=== PATIENT | male | born 1970 | race Caucasian/White ===

== ENCOUNTER 2017-10-17 17:54 | Emergency (ER) | payer MEDICAID ==
--- NOTE | 2017-10-17 18:11 | Emergency Department Record ---
History of Present Illness - General Chief complaint: Male Urogenital Problem Stated complaint: URINARY PROBLEMS Time Seen by Provider: 10/17/17 18:02 Source: Patient Mode of Arrival: Ambulatory Limitations: No limitations - History of Present Illness Initial comments: The patient is here due to mild dysuria and urinary urgency for 3 days. He denies any AP, nausea, back pain, fever, vomiting, or hematuria. The patient denies any hx of similar issues and also denies any hx of kidney or bladder issues. He does state his significant other was here in the ER 3 days ago and may have had an infection. MD Complaint: Dysuria Onset/Timin -: Days(s) Radiation: None Reports: Denies other symptoms - Related Data Sexually active: No Previous Rx's Medication Instructions Recorded Metronidazole [Flagyl] 500 mg PO BID #14 tablet 10/17/17 Allergies Allergy/AdvReac Type Severity Reaction Status Date / Time chocolate flavor Allergy ANAPHYLAXIS Verified 10/17/17 18:04 Travel Screening - Travel/Exposure Within Last 30 Days Have you traveled within the last 30 days?: Yes Location Detail:: [place] - Travel/Exposure Within Last Year Have you traveled outside the [place] in the last year?: No - Additonal Travel Details Have you been exposed to anyone with a communicable illness?: No - Travel Symptoms Symptom Screening: None Review of Systems Constitutional: Denies: Chills, Fever Eyes: Denies: Eye discharge ENT: Denies: Congestion Respiratory: Denies: Cough, Dyspnea Past Medical History - SOCIAL HISTORY Smoking Status: Current every day smoker Alcohol Use: None Drug Use: None - RESPIRATORY Hx Respiratory Disorders: Yes Hx Asthma: Yes Hx COPD: Yes - CARDIOVASCULAR Hx Cardio Disorders: No - NEURO Hx Neuro Disorders: No - GI Hx GI Disorders: No - Hx Genitourinary Disorders: No - ENDOCRINE Hx Endocrine Disorders: Yes Hx Diabetes: Yes (borderline) - MUSCULOSKELETAL Hx Musculoskeletal Disorders: Yes Hx Arthritis: Yes Comment:: tick/twitch to right eye - PSYCH Hx Psych Problems: No - HEMATOLOGY/ONCOLOGY Hx Hematology/Oncology Disorders: No Family Medical History Any Significant Family History?: No Physical Exam - General General Appearance: Alert, Oriented x3, Cooperative, No acute distress - Head Head exam: Atraumatic, Normocephalic, Normal inspection - Eye Eye exam: Normal appearance, PERRL - ENT Throat exam: Normal inspection. negative: Tonsillar erythema, Tonsillar exudate - Neck Neck exam: Normal inspection, Full ROM. negative: Tenderness - Respiratory Respiratory exam: Normal lung sounds bilaterally. negative: Respiratory distress - Cardiovascular Cardiovascular Exam: Regular rate, Normal rhythm, Normal heart sounds - GI/Abdominal GI/Abdominal exam: Soft, Normal bowel sounds, Other (Neg CVAT.). negative: Tenderness Course Vital Signs 10/17/17 17:57 Temperature 98.2 F Pulse Rate 76 Respiratory 16 Rate Blood Pressure 125/88 Pulse Ox 99 - Reevaluation(s) Reevaluation #1: The patient is doing well. I did explain that we will be treating him for Trichomonas which is the same infection as his fiancee. We will test for GC and Chlamydia and will treat if positive but since her testing was neg most likely his will be also. 10/17/17 18:41 Medical Decision Making - Lab Data Result diagrams: 10/17/17 18:10 10/17/17 18:10 Disposition Disposition: Discharge Clinical Impression: Trichomonal urethritis in male Disposition: Home, Self-Care Condition: (2) Stable Instructions: Trichomoniasis (ED) Additional Instructions: Please take the Flagyl as directed and do not drink alcohol. Please see your PCP next week for recheck of the urine. Please practice safe sex and return to the ER for any problems. Prescriptions: Metronidazole [Flagyl] 500 mg PO BID #14 tablet Forms: Patient Portal Access Time of Disposition: 18:45 Quality - Quality Measures Quality Measures: N/A - Blood Pressure Screening View Details: Yes Does Patient Have Any of the Following: No Blood Pressure Classification: Pre-Hypertensive BP Reading Systolic Measurement: 125 Diastolic Measurement: 88 Screening for High Blood Pressure: < Pre-Hypertensive BP, F/U Documented > [ G8950] Pre-Hypertensive Follow-up Interventions: Referral to alternative/primary care provider.
[2017-10-17 18:20] LABS: BASO % 0.6 % (0-6); EOS % 4.8 % (0-6); GRAN % 51.4 % (47-80); HEMATOCRIT 42.5 % (42.0-52.0); HEMOGLOBIN 14.6 gm/dl (14.0-18.0); LYMPH % 35.6 % (16-45); MEAN CELL VOLUME 88.7 fl (81-97); MEAN CORPUSCULAR HEMOGLOBIN 30.5 pg (27-33); MEAN CORPUSCULAR HGB CONC 34.4 g/dl (32-36); MEAN PLATELET VOLUME 9.4 fl (7.4-10.4); MONO % 7.6 % (0-9); PLATELET COUNT 310 K/uL (130-400); RED BLOOD COUNT 4.79 M/uL (4.40-5.70); RED CELL DISTRIBUTION WIDTH 12.5 % (11.5-14.5); WHITE BLOOD COUNT W/O DIFF 7.9 K/uL (4.2-12.2)
[2017-10-17 18:24] LABS: URINE APPEARANCE CLEAR; URINE BILIRUBIN NEGATIVE (NEGATIVE); URINE BLOOD NEGATIVE (NEGATIVE); URINE COLOR YELLOW; URINE GLUCOSE (UA) NEGATIVE (NEGATIVE); URINE KETONE NEGATIVE (NEGATIVE); URINE LEUKOCYTE ESTERASE SMALL (NEGATIVE); URINE NITRITE NEGATIVE (NEGATIVE); URINE PROTEIN NEGATIVE (NEGATIVE)
[2017-10-17] MEDS ORDERED: METRONIDAZOLE 250 MG TABLET PO ONE (18:26)
[2017-10-17 18:29] LABS: BLOOD UREA NITROGEN 7 mg/dL (6-20); CREATININE 0.8 mg/dL (0.7-1.2); EST GLOMERULAR FILTRATION RATE > 60 mL/min
[2017-10-17 18:31] LABS: URINE EPITHELIAL CELLS NONE SEEN (FEW); URINE RBC NONE SEEN (NONE SEEN)
[2017-10-17 18:32] LABS: GLUCOSE,RANDOM 119 mg/dL (74-109)
== END 2017-10-17 19:20 | disposition home or self-care (01) ==
LOC: ER 17:54
DX: A59.03 Trichomonal cystitis and urethritis (principal)
CPT/HCPCS: 80048; 81001; 85025; 99283

== ENCOUNTER 2017-10-26 19:08 | Emergency (ER) | payer MEDICAID ==
--- NOTE | 2017-10-26 19:26 | Emergency Department Record ---
History of Present Illness - General Chief complaint: Male Urogenital Problem Stated complaint: RECHECK STD Time Seen by Provider: 10/26/17 19:11 Source: Patient Mode of Arrival: Ambulatory Limitations: No limitations - History of Present Illness Initial comments: 47 yo male presents to ED for re-evaluation of recent treatment for trichonmonas. Patient reports that he was prescribed Flagyl and completed his course of antibiotics 2 days ago, wants to make sure his infection has resolved. Patient denies dysuria symptoms, fevers, chills, or abdominal pain symptoms. Patient denies health problems other than COPD. MD Complaint: Other Onset/Timin -: Days(s) Radiation: None Improves with: None Worsens with: None - Related Data Sexually active: Yes Home Medications Medication Instructions Recorded Confirmed Last Taken No Home Med [NO HOME MEDS] 10/26/17 10/26/17 Unknown Allergies Allergy/AdvReac Type Severity Reaction Status Date / Time chocolate flavor Allergy ANAPHYLAXIS Verified 10/17/17 18:04 Travel Screening - Travel/Exposure Within Last 30 Days Have you traveled within the last 30 days?: No - Travel Symptoms Symptom Screening: None Review of Systems Constitutional: Denies: Chills, Fever, Malaise, Night sweats Eyes: Denies: Eye discharge, Eye pain ENT: Denies: Congestion, Ear pain, Epistaxis Respiratory: Denies: Cough, Dyspnea Cardiovascular: Denies: Chest pain, Dyspnea on exertion Endocrine: Denies: Fatigue, Heat or cold intolerance Gastrointestinal: Denies: Abdominal pain, Nausea, Vomiting Genitourinary: Denies: Hematuria, Incontinence, Retention, Testicular pain, Testicular mass Musculoskeletal: Denies: Arthralgia, Back pain Skin: Denies: Bruising, Change in color Neurological: Denies: Abnormal gait, Confusion, Headache, Seizure Psychiatric: Denies: Anxiety Hematological/Lymphatic: Denies: Anemia, Blood Clots Past Medical History - SOCIAL HISTORY Smoking Status: Current every day smoker - RESPIRATORY Hx Respiratory Disorders: Yes Hx Asthma: Yes Hx COPD: Yes - CARDIOVASCULAR Hx Cardio Disorders: No - NEURO Hx Neuro Disorders: No - GI Hx GI Disorders: No - Hx Genitourinary Disorders: No - ENDOCRINE Hx Endocrine Disorders: Yes Hx Diabetes: Yes (borderline) - MUSCULOSKELETAL Hx Musculoskeletal Disorders: Yes Hx Arthritis: Yes Comment:: tick/twitch to right eye - PSYCH Hx Psych Problems: No - HEMATOLOGY/ONCOLOGY Hx Hematology/Oncology Disorders: No Family Medical History Any Significant Family History?: Yes Hx Heart Disease: Father, Brother/Sister, Grandparents Hx HTN: Grandparents Hx Resp Disorders: Grandparents Hx Stroke: Father Physical Exam - General General Appearance: Alert, Oriented x3, Cooperative, No acute distress Limitations: No limitations - Head Head exam: Atraumatic, Normocephalic, Normal inspection Head exam detail: negative: Abrasion, Contusion, Santiago's sign, General tenderness, Hematoma, Laceration - Eye Eye exam: Normal appearance. negative: Conjunctival injection, Periorbital swelling, Periorbital tenderness, Scleral icterus - ENT Ear exam: negative: Auricular hematoma, Auricular trauma Nasal Exam: negative: Active bleeding, Discharge, Dried blood, Foreign body Mouth exam: negative: Drooling, Laceration, Muffled voice, Tongue elevation - Neck Neck exam: Normal inspection. negative: Meningismus, Tenderness - Respiratory Respiratory exam: Decreased breath sounds. negative: Rales, Respiratory distress, Rhonchi, Stridor - Cardiovascular Cardiovascular Exam: Regular rate, Normal rhythm, Normal heart sounds - GI/Abdominal GI/Abdominal exam: Soft. negative: Rebound, Rigid, Tenderness - Rectal Rectal exam: Deferred - exam: Deferred - Extremities Extremities exam: Normal inspection. negative: Pedal edema, Tenderness - Back Back exam: Denies: CVA tenderness (R), CVA tenderness (L) - Neurological Neurological exam: Alert, Normal gait, Oriented X3 - Psychiatric Psychiatric exam: Normal affect, Normal mood - Skin Skin exam: Normal color. negative: Abrasion Type of lesion: negative: abrasion Course Vital Signs 10/26/17 19:14 Temperature 97.9 F Pulse Rate 59 L Respiratory 18 Rate Blood Pressure 135/72 Pulse Ox 98 - Reevaluation(s) Reevaluation #1: 10/26/17 19:57 UA appears negative for infection, and the patient appears stable for discharge at this time. Disposition Disposition: Discharge Clinical Impression: STD (sexually transmitted disease) Disposition: Home, Self-Care Condition: (2) Stable Instructions: Sexually Transmitted Diseases (ED) Additional Instructions: Return to ED if your symptoms worsen or if you have any concerns. Follow-up with your family doctor in 3-5 days as directed. Forms: Patient Portal Access Time of Disposition: 19:57 Quality - Quality Measures Quality Measures: N/A - Blood Pressure Screening Does Patient Have Any of the Following: No Blood Pressure Classification: Normal BP Reading Systolic Measurement: 106 Diastolic Measurement: 69 Screening for High Blood Pressure: < Normal BP, F/U Not Required > [G8783]
[2017-10-26 19:41] LABS: URINE APPEARANCE CLEAR; URINE BILIRUBIN NEGATIVE (NEGATIVE); URINE BLOOD NEGATIVE (NEGATIVE); URINE COLOR YELLOW; URINE GLUCOSE (UA) NEGATIVE (NEGATIVE); URINE KETONE NEGATIVE (NEGATIVE); URINE LEUKOCYTE ESTERASE TRACE (NEGATIVE); URINE NITRITE NEGATIVE (NEGATIVE); URINE PROTEIN NEGATIVE (NEGATIVE); URINE UROBILINOGEN 0.2 E.U./dL (0.20 - 1.00)
[2017-10-26 19:53] LABS: URINE RBC 0 - 2 (NONE SEEN); URINE WBC 0 - 2 (0-2/hpf)
== END 2017-10-26 20:09 | disposition home or self-care (01) ==
LOC: ER 19:08
DX: A64 Unspecified sexually transmitted disease (principal)
CPT/HCPCS: 81001; 99283

== ENCOUNTER 2018-07-22 07:41 | Emergency (ER) | payer SELFPAY ==
--- NOTE | 2018-07-22 08:12 | Emergency Department Record ---
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 No fall or direct injury. Pain is mid lower neck posterior and is worse with motion into rotation "right or left" and flexion and extension. No pain into arms, no numbness, n oweakness. Continues to work without limitations. Pt did not report initially at time of injury, no prior medical evaluation or treatments. Taking an OTC "pain reliever 500mg 2 or 3 at a time" for pains in knees and neck. "Good relief" with meds. 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 This issue was present before his current injury. MD Complaint: Neck injury, Neck pain Onset/Timin -: Month(s) Place: Work, Other Severity: Moderate Severity scale (1-10): 8 Quality: Sharp Consistency: Intermittent Improves With: Immobilization, Remaining still Worsens With: Movement of neck Context: Lifting Associated Symptoms: Other Treatments Prior to Arrival: Acetaminophen - Related Data Previous Rx's Medication Instructions Recorded Ibuprofen [Motrin 600Mg] 600 mg PO Q6H 10 Days #40 tablet 07/22/18 Allergies Allergy/AdvReac Type Severity Reaction Status Date / Time chocolate flavor Allergy ANAPHYLAXIS Verified 07/22/18 07:49 Travel Screening - Travel/Exposure Within Last 30 Days Have you traveled within the last 30 days?: No - Travel/Exposure Within Last Year Have you traveled outside the [place] in the last year?: No - Additonal Travel Details Have you been exposed to anyone with a communicable illness?: No - Travel Symptoms Symptom Screening: None Review of Systems Constitutional: Denies: Chills, Fever Eyes: Denies: Photophobia, Vision change ENT: Denies: Congestion Respiratory: Denies: Cough, Dyspnea Cardiovascular: Denies: Arrhythmia, Chest pain Endocrine: Denies: Fatigue Gastrointestinal: Denies: Abdominal pain, Nausea, Vomiting Musculoskeletal: Reports: As per HPI Skin: Denies: Bruising, Rash Neurological: Denies: Abnormal gait, Headache, Weakness Psychiatric: Denies: Anxiety Hematological/Lymphatic: Denies: Anemia Past Medical History - SOCIAL HISTORY Smoking Status: Current every day smoker Alcohol Use: Occasional Drug Use: None - RESPIRATORY Hx Respiratory Disorders: Yes Hx Asthma: Yes Hx COPD: Yes - CARDIOVASCULAR Hx Cardio Disorders: No - NEURO Hx Neuro Disorders: No - GI Hx GI Disorders: No - Hx Genitourinary Disorders: No - ENDOCRINE Hx Endocrine Disorders: Yes Hx Diabetes: Yes (borderline) - MUSCULOSKELETAL Hx Musculoskeletal Disorders: Yes Hx Arthritis: Yes Comment:: tick/twitch to right eye - PSYCH Hx Psych Problems: No - HEMATOLOGY/ONCOLOGY Hx Hematology/Oncology Disorders: No Family Medical History Any Significant Family History?: Yes Hx Heart Disease: Father, Brother/Sister, Grandparents Hx HTN: Grandparents Hx Resp Disorders: Grandparents Hx Stroke: Father Physical Exam - General General Appearance: Alert, Oriented x3, Cooperative, No acute distress Limitations: No limitations - Head Head exam: Atraumatic, Normal inspection - Eye Eye exam: Normal appearance, PERRL, EOMI - ENT ENT exam: Normal exam, Mucous membranes moist, Normal external ear exam, Normal orophraynx - Neck Neck exam: Full ROM, Tenderness (tender at C5-6 midline, no swelling, no muscle tension or spasm in cervical spine). negative: Lymphadenopathy, Meningismus - Respiratory Respiratory exam: Normal lung sounds bilaterally. negative: Rhonchi, Wheezes - Cardiovascular Cardiovascular Exam: Regular rate, Normal rhythm, Normal heart sounds Peripheral Pulses: 2+: Radial (R), Radial (L) - GI/Abdominal GI/Abdominal exam: Soft, Normal bowel sounds. negative: Tenderness - Extremities Extremities exam: Normal inspection, Full ROM. negative: Calf tenderness, Joint swelling - Back Back exam: Reports: Normal inspection. Denies: Paraspinal tenderness, Tenderness (to the Thoracic, Lumbar, sacral) - Neurological Neurological exam: Alert, Altered, Normal gait, Oriented X3 - Psychiatric Psychiatric exam: Normal affect - Skin Skin exam: Normal color. negative: Rash Course Vital Signs 07/22/18 07:50 Temperature 97.7 F Pulse Rate 51 L Respiratory 16 Rate Blood Pressure 132/93 Pulse Ox 100 Disposition Disposition: Discharge Clinical Impression: Neck pain, acute, Cervical muscle strain Disposition: Home, Self-Care Condition: (1) Good Instructions: Cervical Sprain (ED) Additional Instructions: Follow up with your primary physician in one week. Return as needed. If weakness or pain to arms return to ED immediately. Prescriptions: Ibuprofen [Motrin 600Mg] 600 mg PO Q6H 10 Days #40 tablet Forms: Patient Portal Access Quality - Quality Measures Quality Measures: N/A - Blood Pressure Screening Does Patient Have Any of the Following: No Blood Pressure Classification: Hypertensive Reading Systolic Measurement: 132 Diastolic Measurement: 93 Screening for High Blood Pressure: < Normal BP, F/U Not Required > [G8783]
--- NOTE | 2018-07-24 08:49 | RADIOLOGY REPORT ---
EXAM: COMPLETE CERVICAL SPINE HISTORY: INCREASING NECK PAIN WITH TINGLING BILATERALLY IN THE HANDS, HAD A LIFTING STRAIN ONE MONTH AGO. TECHNIQUE: Six views of the cervical spine were obtained. Comparison: None. Encounter: Initial. FINDINGS: There is slight anterior compression of the superior end plate of the body of C4 which is likely chronic with some associated spurring. Old films would be useful to confirm. Some degenerative change at the odontoid- anterior arch of C1 articulation. The cervical intervertebral disk spaces are maintained. No prevertebral soft tissue swelling is evident. Elsewhere the cervical spine appears negative. No definite acute fracture is seen. No destructive lesion is seen. IMPRESSION: 1. MILD COMPRESSION OF THE ANTERIOR ASPECT OF THE BODY OF C4 IS LIKELY CHRONIC. OLD FILMS WOULD BE USEFUL TO CONFIRM. 2. DEGENERATIVE CHANGE AT THE ODONTOID-ANTERIOR ARCH OF C1 ARTICULATION. JOB NUMBER: [id number] MTDD
== END 2018-07-22 08:44 | disposition home or self-care (01) ==
LOC: ER 07:41
DX: S16.1XXA Strain of muscle, fascia and tendon at neck level, initial encounter (principal); X50.0XXA Overexertion from strenuous movement or load, initial encounter; Y99.0 Civilian activity done for income or pay; J44.9 Chronic obstructive pulmonary disease, unspecified; F17.210 Nicotine dependence, cigarettes, uncomplicated
CPT/HCPCS: 72050; 99283

== ENCOUNTER 2019-03-19 18:21 | Emergency (ER) | payer SELFPAY ==
[2019-03-19] MEDS ORDERED: METHYLPREDNISOLONE PF 125MG/VIAL IVP ONE (18:30)
[2019-03-19] MEDS ORDERED: IPRATROPIUM/ALBUTEROL (0.5MG/3MG) NEB INH ONE (18:30)
--- NOTE | 2019-03-19 18:36 | Emergency Department Record ---
History of Present Illness - General Chief Complaint: Cough Stated Complaint: SOB Source: Patient Mode of Arrival: Ambulatory Limitations: No limitations - History of Present Illness Initial Comments: 48 yo male with COPD present with about 4-5 months of increasing cough, congestion and shortness of breath. The last one to two week he has had sinus pressure, discolored drainage and cough with productive sputum. He uses his inhalers without improvement. He does not have a doctor. He does continue to smoke. He states he is trying to quit. MD Complaint: Cough, Shortness of breath -: Month(s) (5) Radiation: Other Severity: Moderate Quality: Other Consistency: Constant Improves With: Nothing Worsens With: Coughing Known History Of: COPD Context: Recent URI (Sinus drainage, productive sputum) Associated Symptoms: Cough Treatments Prior to Arrival: Bronchodilator - Related Data Previous Rx's Medication Instructions Recorded Azithromycin 250 mg PO DAILY #4 tablet 03/19/19 Budesonide/Formoterol Fumarate 10.2 gm IH BID #1 [email or web address] 03/19/19 [Symbicort 160-4.5 Mcg Inhaler] Prednisone [Prednisone 20Mg] 20 mg PO BID #10 tab 03/19/19 Allergies Allergy/AdvReac Type Severity Reaction Status Date / Time chocolate flavor Allergy ANAPHYLAXIS Verified 03/19/19 18:29 Review of Systems Constitutional: Denies: Chills, Fever, Malaise, Weakness Eyes: Denies: Eye discharge, Eye pain, Photophobia, Vision change ENT: Reports: Congestion. Denies: Dental pain, Ear pain, Epistaxis, Throat pain Respiratory: Reports: Cough, Dyspnea, Wheezes. Denies: Hemoptysis, Stridor Cardiovascular: Reports: Dyspnea on exertion, Syncope (He past out a month ago at work). Denies: Chest pain, Edema, Palpitations Endocrine: Denies: Fatigue Gastrointestinal: Denies: Abdominal pain, Diarrhea, Nausea, Vomiting Genitourinary: Denies: Dysuria, Frequency, Hematuria Musculoskeletal: Denies: Arthralgia, Back pain, Joint swelling, Myalgia Skin: Denies: Bruising, Change in color, Rash Neurological: Denies: Confusion, Headache Psychiatric: Denies: Anxiety Hematological/Lymphatic: Denies: Blood Clots, Easy bleeding, Easy bruising, Swollen glands Past Medical History - SOCIAL HISTORY Smoking Status: Current every day smoker Drug Use: None - RESPIRATORY Hx Respiratory Disorders: Yes Hx Asthma: Yes Hx COPD: Yes - CARDIOVASCULAR Hx Cardio Disorders: No - NEURO Hx Neuro Disorders: No - GI Hx GI Disorders: No - Hx Genitourinary Disorders: No - ENDOCRINE Hx Endocrine Disorders: Yes Hx Diabetes: Yes (borderline) - MUSCULOSKELETAL Hx Musculoskeletal Disorders: Yes Hx Arthritis: Yes Comment:: tick/twitch to right eye - PSYCH Hx Psych Problems: No - HEMATOLOGY/ONCOLOGY Hx Hematology/Oncology Disorders: No Family Medical History Hx Heart Disease: Father, Brother/Sister, Grandparents Hx HTN: Grandparents Hx Resp Disorders: Grandparents Hx Stroke: Father Physical Exam - General General Appearance: Alert, Oriented x3, Cooperative, No acute distress Limitations: No limitations - Head Head exam: Atraumatic, Normal inspection - Eye Eye exam: Normal appearance, PERRL. negative: Conjunctival injection, Scleral icterus - ENT ENT exam: Normal exam, Mucous membranes moist, Normal orophraynx Ear exam: Normal external inspection Nasal Exam: Normal inspection Mouth exam: Normal external inspection Teeth exam: Normal inspection Throat exam: Normal inspection - Neck Neck exam: Normal inspection. negative: Lymphadenopathy - Respiratory Respiratory exam: Prolonged expiratory, Wheezes. negative: Normal lung sounds bilaterally, Accessory muscle use, Decreased breath sounds, Respiratory distress , Rhonchi, Stridor - Cardiovascular Cardiovascular Exam: Regular rate, Normal rhythm, Normal heart sounds. negative : Diastolic murmur, Systolic murmur Peripheral Pulses: 2+: Radial (R), Radial (L) - GI/Abdominal GI/Abdominal exam: Soft. negative: Tenderness - Rectal Rectal exam: Deferred - exam: Deferred - Extremities Extremities exam: Normal inspection. negative: Calf tenderness, Pedal edema, Tenderness - Back Back exam: Denies: CVA tenderness (R), CVA tenderness (L) - Neurological Neurological exam: Alert, Oriented X3 - Psychiatric Psychiatric exam: Normal affect, Normal mood - Skin Skin exam: Dry, Intact, Normal color, Warm Course - Reevaluation(s) Reevaluation #1: EKG #1: 18:38 Rate: 57 Rhythm: sinus [place]: normal Intervals: QRS 126 ST segments: no acute abnormalities Prior: 07/04/15 no changes 03/19/19 18:44 03/19/19 19:11 The labs results were reviewed There are no acute significant abnormalities of the CBC There are no acute significant abnormalities of the CMP 03/19/19 19:12 CXR reviewed Hyperinflation otherwise no acute process. COPD The patient will be treated for COPD, sinusitis, and given a referral for a new PCP 03/19/19 19:45 Medical Decision Making - Lab Data Result diagrams: 03/19/19 18:35 03/19/19 18:35 Disposition Disposition: Discharge Clinical Impression: COPD (chronic obstructive pulmonary disease), Sinusitis Disposition: Home, Self-Care Condition: (1) Good Instructions: Sinusitis (ED), COPD (Chronic Obstructive Pulmonary Disease) (ED) Additional Instructions: Call the family practice clinic for the next available follow up appointment Return to the ER for a recheck if worse, any new concerns or questions Take the prescriptions provided as directed Review this ER visit and the tests performed with your family doctor You have a small nodule in the lung. Your new doctor will need to recheck this to make sure it does not enlarge. Prescriptions: Azithromycin 250 mg PO DAILY #4 tablet Budesonide/Formoterol Fumarate [Symbicort 160-4.5 Mcg Inhaler] 10.2 gm IH BID # 1 hfa.aer.ad Prednisone [Prednisone 20Mg] 20 mg PO BID #10 tab Referrals: AL SALDIVAR M.D. [MEDICAL DOCTOR] - Forms: Patient Portal Access Time of Disposition: 19:13 Quality - Quality Measures Quality Measures: N/A - Blood Pressure Screening Does Patient Have Any of the Following: No Blood Pressure Classification: Pre-Hypertensive BP Reading Systolic Measurement: 112 Diastolic Measurement: 84 Screening for High Blood Pressure: < Pre-Hypertensive BP, F/U Documented > [ G8950] Pre-Hypertensive Follow-up Interventions: Referral to alternative/primary care provider.
[2019-03-19 18:44] LABS: BASO % 0.6 % (0-6); EOS % 3.6 % (0-6); GRAN % 54.2 % (47-80); HEMATOCRIT 43.4 % (42.0-52.0); HEMOGLOBIN 14.8 gm/dl (14.0-18.0); LYMPH % 33.8 % (16-45); MEAN CELL VOLUME 87.5 fl (81-97); MEAN CORPUSCULAR HEMOGLOBIN 29.8 pg (27-33); MEAN CORPUSCULAR HGB CONC 34.1 g/dl (32-36); MEAN PLATELET VOLUME 9.3 fl (7.4-10.4); MONO % 7.8 % (0-9); PLATELET COUNT 382 K/uL (130-400); RED BLOOD COUNT 4.96 M/uL (4.40-5.70); RED CELL DISTRIBUTION WIDTH 12.9 % (11.5-14.5); WHITE BLOOD COUNT W/O DIFF 7.9 K/uL (4.2-12.2)
[2019-03-19] MEDS ORDERED: AZITHROMYCIN 500 MG TABLET PO ONE (18:45)
[2019-03-19 18:57] LABS: BLOOD UREA NITROGEN 8 mg/dL (6-20); CREATININE 0.8 mg/dL (0.7-1.2); EST GLOMERULAR FILTRATION RATE > 60 mL/min; TOTAL PROTEIN 7.4 g/dL (6.6-8.7)
[2019-03-19 18:59] LABS: GLUCOSE,RANDOM 93 mg/dL (74-109)
[2019-03-19 19:02] LABS: ALB/GLOB RATIO 1.6 (1.1-1.8); ALBUMIN 4.5 g/dL (4.0-5.0); ALKALINE PHOSPHATASE 105 U/L (40-129); ALT/SGPT 16 U/L (<41); AST/SGOT 19 U/L (10.0-50.0)
--- NOTE | 2019-03-22 11:15 | RADIOLOGY REPORT ---
DATE: 03/19/2019 at 1909. EXAM: CHEST, TWO VIEWS. HISTORY: COUGH FOR SEVERAL MONTHS. CHRONIC OBSTRUCTIVE PULMONARY DISEASE. TECHNIQUE: Upright PA and lateral views of the chest. COMPARISON: Two-view chest radiographic examination dated 07/04/2015. FINDINGS: The heart is not enlarged and the pulmonary vasculature is nondilated. The lungs are hyperinflated. No lung consolidation, costophrenic angle blunting, or pneumothorax. Tiny pleural-based nodular opacities are noted in each apex, not significantly changed, consistent with scarring. No acute osseous abnormality. IMPRESSION: 1. HYPERINFLATION OF THE LUNGS CONSISTENT WITH CHRONIC OBSTRUCTIVE PULMONARY DISEASE. 2. NO EVIDENCE OF ACUTE CARDIOPULMONARY DISEASE. BI-APICAL PLEURAL AND PARENCHYMAL SCARRING IS REDEMONSTRATED. 3. NOT MENTIONED ABOVE IS A 3.0 TO 4.0 MM NODULAR OPACITY PROJECTING AT THE LEVEL OF THE LATERAL LEFT HEMITHORAX BASE. THIS IS LIKELY A NIPPLE SHADOW. THERE IS AN EQUIVOCAL NODULAR OPACITY MEASURING 6.0 TO 7.0 MM AT THE MID TO UPPER LEFT HEMITHORAX ON THE FRONTAL VIEW ONLY. THESE ARE NOT VISUALIZED ON THE PRIOR EXAMINATION. SHORT-TERM FOLLOW UP RADIOGRAPHIC EXAMINATION INCLUDING UPRIGHT PA, LATERAL, AND SHELL OBLIQUE VIEWS WITH NIPPLE MARKERS IN PLACE IS RECOMMENDED. Job Number: [id number] MTDD
== END 2019-03-19 20:04 | disposition home or self-care (01) ==
LOC: ER 18:21
DX: J44.9 Chronic obstructive pulmonary disease, unspecified (principal); J01.90 Acute sinusitis, unspecified; R06.02 Shortness of breath; F17.210 Nicotine dependence, cigarettes, uncomplicated
CPT/HCPCS: 71046; 80053; 85025; 93005; 93010; 94640; 96374; 99284; J2930

== ENCOUNTER 2020-01-21 18:15 | Emergency (ER) | payer MEDICAID ==
--- NOTE | 2020-01-21 18:59 | Emergency Department Record ---
History of Present Illness - General Chief complaint: ENT Stated complaint: PAIN IN LT EAR Time Seen by Provider: 01/21/20 18:53 Source: Patient Mode of Arrival: Ambulatory Limitations: No limitations - History of Present Illness Initial comments: 49 yo male presents with left ear discomfort. The onset was a few days ago. He states it is a fairly constant dull ache. No drainage. No fevers. The hearing on the left is a little muffled. He has a very mild sore throat as well. No fevers. No runny nose. He has a chronic cough from COPD that is unchanged. NO swollen glands. No dizziness or vertigo. MD complaint: Ear pain Onset/Timin -: Days(s) Location: L ear Severity: Mild Severity scale (1-10): 5 Quality: Aching Consistency: Constant Improves with: None Worsens with: None Associated Symptoms: Cough, Sore throat - Related Data Previous Rx's Medication Instructions Recorded Amoxicillin 500 mg PO TID #21 capsule 01/21/20 Carbamide Peroxide [Ear Drops] 15 ml OT BID #30 drops 01/21/20 Allergies Allergy/AdvReac Type Severity Reaction Status Date / Time chocolate flavor Allergy ANAPHYLAXIS Verified 01/21/20 18:53 Travel/Exposure Screening - Travel/Exposure Within Last 30 Days Have you traveled within the last 30 days?: No - Additonal Travel/Exposure Details Have you been exposed to anyone with a communicable illness?: No Review of Systems Constitutional: Denies: Chills, Fever, Malaise, Weakness Eyes: Denies: Eye discharge, Eye pain, Photophobia, Vision change ENT: Reports: As per HPI, Congestion, Ear pain, Hearing loss, Throat pain. Denies: Dental pain, Epistaxis Respiratory: Reports: Cough. Denies: Dyspnea, Hemoptysis, Stridor, Wheezes Cardiovascular: Denies: Chest pain Endocrine: Denies: Fatigue Gastrointestinal: Denies: Abdominal pain, Diarrhea, Nausea, Vomiting Musculoskeletal: Denies: Neck pain Skin: Denies: Rash Neurological: Denies: Headache, Vertigo Psychiatric: Denies: Anxiety Hematological/Lymphatic: Denies: Easy bleeding, Easy bruising Past Medical History - SOCIAL HISTORY Smoking Status: Current every day smoker - RESPIRATORY Hx Respiratory Disorders: Yes Hx Asthma: Yes Hx COPD: Yes - CARDIOVASCULAR Hx Cardio Disorders: No - NEURO Hx Neuro Disorders: No - GI Hx GI Disorders: No - Hx Genitourinary Disorders: No - ENDOCRINE Hx Endocrine Disorders: Yes Hx Diabetes: Yes (borderline) - MUSCULOSKELETAL Hx Musculoskeletal Disorders: Yes Hx Arthritis: Yes Comment:: tick/twitch to right eye - PSYCH Hx Psych Problems: No - HEMATOLOGY/ONCOLOGY Hx Hematology/Oncology Disorders: No Family Medical History Any Significant Family History?: Yes Hx Heart Disease: Father, Brother/Sister, Grandparents Hx HTN: Grandparents Hx Resp Disorders: Grandparents Hx Stroke: Father Physical Exam - General General Appearance: Alert, Oriented x3, Cooperative, No acute distress Limitations: No limitations - Head Head exam: Atraumatic, Normocephalic, Normal inspection - Eye Eye exam: Normal appearance, PERRL. negative: Conjunctival injection, Periorbital swelling - ENT ENT exam: Mucous membranes moist, Normal external ear exam, Normal orophraynx. negative: Mucous membranes dry, TM's normal bilaterally (Bilateral cerumen left greater than right. Left is impacted) Ear exam: Other (Bilateral cerumen left greater than right. Left is impacted). negative: Normal external inspection, Auricular hematoma, Auricular trauma, External canal tenderness Nasal Exam: Normal inspection Mouth exam: Normal external inspection Teeth exam: Dental caries, Dental tenderness #, Other (missing several). negative: Gingival enlargement Throat exam: Normal inspection - Neck Neck exam: Normal inspection, Full ROM. negative: Lymphadenopathy, Tenderness - Respiratory Respiratory exam: Normal lung sounds bilaterally - Neurological Neurological exam: Alert, Normal gait, Oriented X3. negative: Abnormal gait, Altered - Psychiatric Psychiatric exam: Normal affect, Normal mood. negative: Agitated, Anxious - Skin Skin exam: Dry, Intact, Normal color, Warm Course Vital Signs 01/21/20 18:50 Temperature 97.2 F L Pulse Rate 74 Respiratory 20 Rate Blood Pressure 134/88 Pulse Ox 98 - Reevaluation(s) Reevaluation #1: 01/21/20 19:30 Minimal wax was expelled with irrigation I recommend wax softener a few days then reassess Disposition Disposition: Discharge Clinical Impression: Dental caries Cerumen impaction Qualifiers: Laterality: left Qualified Code(s): H61.22 - Impacted cerumen, left ear Disposition: Home, Self-Care Condition: (1) Good Instructions: Cerumen Impaction (ED) Additional Instructions: Do not put Qtips in the ears. This can cause the was to plug the ear Use over the counter ear wax removal kit th next 3-4 days as directed Prescriptions: Amoxicillin 500 mg PO TID #21 capsule Carbamide Peroxide [Ear Drops] 15 ml OT BID #30 drops Forms: Patient Portal Access Time of Disposition: 19:01 Quality - Quality Measures Quality Measures: N/A - Blood Pressure Screening Does Patient Have Any of the Following: No Blood Pressure Classification: Pre-Hypertensive BP Reading Systolic Measurement: 134 Diastolic Measurement: 88 Screening for High Blood Pressure: < Pre-Hypertensive BP, F/U Documented > [[id number]] Pre-Hypertensive Follow-up Interventions: Referral to alternative/primary care provider.
== END 2020-01-21 19:28 | disposition home or self-care (01) ==
LOC: ER 18:15
DX: H61.22 Impacted cerumen, left ear (principal); K02.9 Dental caries, unspecified; J44.9 Chronic obstructive pulmonary disease, unspecified; R05 Cough; F17.210 Nicotine dependence, cigarettes, uncomplicated
CPT/HCPCS: 99283